=== PATIENT | female | born 1940 | race Caucasian/White ===

== ENCOUNTER 2016-11-08 13:46 | Observation (INO) | payer MEDICARE, OTHER ==
[~2016-11-08] VITALS: Ht 154.9 cm; Wt 71.0 kg
[2016-11-08] VITALS (9 sets, daily range): BP systolic 125–165; BP diastolic 69–82; PULSE 64–70; RESP 12–18; TEMP 97.8–98.5; O2SAT 94–99
[~2016-11-08 13:46] MED LIST: ALPR0.5T99 PO; ATOR20TA42 PO; CENTTAB9 PO; DARV PO; NAPR550 PO; OYST500T77 PO; TESS200C PO; ZITH250T PO
[2016-11-08] MEDS ORDERED: NEXI20CA PO (14:07)
[2016-11-08] MEDS ORDERED: TIMO0.2517 EACH EYE (14:07)
[2016-11-08] MEDS ORDERED: LISI20TA PO (14:07)
[2016-11-08] MEDS ORDERED: [UNRECOGNIZED DRUG - OTHER] PO (14:07)
[2016-11-08] MEDS ORDERED: CITA20TA4 PO (14:07)
[2016-11-08] MEDS ORDERED: B12-1CHW CHEW (14:07)
[2016-11-08] MEDS ORDERED: [UNRECOGNIZED DRUG - OTHER] PO (14:07)
[2016-11-08] MEDS ORDERED: CALC-131 PO (14:07)
[2016-11-08] MEDS ORDERED: ASPIRIN 81 MG CHEW TAB PO ONE (14:45)
[2016-11-08] MEDS ORDERED: SODIUM CHLORIDE 0.9% FLUSH 5 ML FLUSH IVF PRN ×2 (14:45→16:45)
[2016-11-08 14:49] LABS: AUTOMATED NEUTROPHIL # 2.8 TH/MM3 (1.8-7.7); BASOPHIL % 0.7 % (0.0-2.0); EOSINOPHIL # 0.1 TH/MM3 (0-0.4); EOSINOPHIL % 2.2 % (0.0-4.0); HEMATOCRIT 35.4 % (35.0-46.0); HEMO FLAGS DIFF FINAL; LYMPH % 26.7 % (9.0-44.0); LYMPHOCYTE # 1.2 TH/MM3 (1.0-4.8); MEAN CORPUSCULAR HEMOGLOBIN 31.4 PG (27.0-34.0); MEAN CORPUSCULAR HGB CONC 33.7 % (32.0-36.0); MONO % 10.4 % (0.0-8.0); PLATELET COUNT 211 TH/MM3 (150-450); RED CELL DISTRIBUTION WIDTH 13.4 % (11.6-17.2); WHITE BLOOD COUNT 4.6 TH/MM3 (4.0-11.0)
[2016-11-08 14:56] LABS: CHLORIDE 103 MEQ/L (98-107); POTASSIUM 3.7 MEQ/L (3.5-5.1); SODIUM (NA) 142 MEQ/L (136-145)
[2016-11-08 15:00] LABS: ANION GAP 8 MEQ/L (5-15); BICARBONATE 30.7 MEQ/L (21.0-32.0); BLOOD UREA NITROGEN 21 MG/DL (7-18); MAGNESIUM 2.2 MG/DL (1.5-2.5)
[2016-11-08] MEDS ORDERED: NITROGLYCERIN 0.4 MG SL 25 TABS/BTL SL ONE (15:00)
[2016-11-08 15:02] LABS: APTT (PATIENT) 27.7 SEC (24.3-30.1); INTERNATIONAL NORMALIZED RATIO 0.9 RATIO; PROTHROMBIN TIME - PATIENT 10.1 SEC (9.8-11.6)
[2016-11-08 15:03] LABS: ALT (GPT) 13 U/L (10-53); AST (GOT) 17 U/L (15-37); GLOMERULAR FILTRATION RATE 40 ML/MIN (>89)
[2016-11-08 15:05] LABS: TOTAL BILIRUBIN ADULT 0.2 MG/DL (0.2-1.0)
[2016-11-08 15:06] LABS: ALKALINE PHOSPHATASE 61 U/L (45-117)
--- NOTE | 2016-11-08 15:27 | RADHPO ---
EXAM DATE/TIME: 11/08/2016 14:52 [facility] COMPARISON: No previous studies available for comparison. INDICATIONS : Chest pain MEDICAL HISTORY : None. SURGICAL HISTORY : None. ENCOUNTER: Initial ACUITY: 1 day PAIN SCORE: 5/10 LOCATION: Bilateral chest FINDINGS: PA and lateral views of the chest demonstrate bilateral mostly basilar airspace disease. Mild cardiom egaly. Trace pleural fluid. Tortuous aorta. CONCLUSION: 1. Cardiomegaly with basilar space disease. Differential diagnosis includes mild pulmonary edema. Mike Velazquez MD on November 08, 2016 at 15:23 Board Certified Radiologist. This report was verified electronically.
--- NOTE | 2016-11-08 15:34 | PD ---
HPI Chief Complaint: Chest Pain Time Seen by Provider: 14:06 Travel History International Travel<30 days: No Contact w/Intl Traveler<30days: No Traveled to known affect area: No History of Present Illness HPI Is a 75-year-old woman who presents to the emergency department complaining of chest pain and pressure coming intermittently for the past week or so. She's had 3 separate episodes. She's had the pain intermittently in the past, but never very severe, never very frequently. Over the past week she's had a more frequently, more persistent, and in greater severity. She describes squeezing pain in her chest and goes into her back. It last about 2 hours last night. She still had mild chest pressure this morning with continued third now. No diaphoresis. No shortness of breath. She has had some left temporal headache as well with these pains. She otherwise has been feeling generally well and healthy. She is a history of hiatal hernia and GERD. She takes Nexium. She states she is not really had an increase in her indigestion symptoms. She also has had a history of taketsubo cardiomyopathy several years ago. No history of CAD. No residual symptoms from the cardiomyopathy, which apparently is completely resolved. History Past Medical History Narrative Medical Hiatal hernia, GERD Hypertension Anxiety/depression Hyperlipidemia History of Taketsubo cardiomyopathy/apical ballooning syndrome Tetanus Vaccination: Unknown Influenza Vaccination: No Menopausal: Yes Social History Alcohol Use: Yes (WINE DAILY) Tobacco Use: No Allergies-Medications (Allergen,Severity, Reaction): Coded Allergies: Codeine (Verified Allergy, Severe, Anaphylaxis, 11/08/16) Reported Meds & Prescriptions Reported Meds & Active Scripts Active Reported Timolol Maleate (Timolol Maleate (Ophth)) 0.25 % Mattie Unknown Dose EACH EYE HS Lisinopril-Hctz 20-12.5 Mg Tab 1 Tab PO DAILY Citalopram (Citalopram Hydrobromide) 20 Mg Tab 20 Mg PO DAILY [Proepa] Unknown Dose PO DAILY Calcium & Magnesium (Calcium-Magnesium) 750-465 Mg Tab 1 Tab PO DAILY [Memory Pro] Unknown Dose PO DAILY [id number] (Methylcobalamin) 1 Mg Chew 1 Mg CHEW DAILY Nexium (Esomeprazole DR) 20 Mg Capdr 20 Mg PO DAILY Review of Systems Except as stated in HPI: all other systems reviewed are Neg Physical Exam Narrative GENERAL: Well-appearing 75 year-old woman, no acute distress. SKIN: Warm and dry. HEAD: Atraumatic. Normocephalic. EYES: Pupils equal and round. No scleral icterus. No injection or drainage. ENT: No nasal bleeding or discharge. Mucous membranes pink and moist. No temporal tenderness. NECK: Trachea midline. No JVD. CARDIOVASCULAR: Regular rate and rhythm. No murmur appreciated. RESPIRATORY: No accessory muscle use. Clear to auscultation. Breath sounds equal bilaterally. GASTROINTESTINAL: Abdomen flat and soft. No tenderness. No right upper quadrant tenderness. Negative Tipton's. No palpable organomegaly. MUSCULOSKELETAL: No obvious deformities. No edema. NEUROLOGICAL: Awake and alert. No obvious cranial nerve deficits. Motor grossly within normal limits. Normal speech. PSYCHIATRIC: Appropriate mood and affect; insight and judgment normal. Data Data Last Documented VS Vital Signs Date Time Temp Pulse Resp B/P Pulse Ox O2 Delivery O2 Flow Rate FiO2 11/08/16 15:36 16 11/08/16 15:23 64 151/75 129/73 11/08/16 14:07 98 Nasal Cannula 2 11/08/16 13:55 98.5 Orders Electrocardiogram (11/08/16 14:36) Complete Blood Count With Diff (11/08/16 14:36) Comprehensive Metabolic Panel (11/08/16 14:36) Magnesium (Mg) (11/08/16 14:36) Prothrombin Time / Inr (Pt) (11/08/16 14:36) Act Partial Throm Time (Ptt) (11/08/16 14:36) Troponin I (11/08/16 14:36) Lipase (11/08/16 14:36) Ecg Monitoring (11/08/16 14:36) Bilateral Bp Monitoring (11/08/16 14:36) Iv Access Insert/Monitor (11/08/16 14:36) Oximetry (11/08/16 14:36) Oxygen Administration (11/08/16 14:36) Aspirin Chew (Aspirin Chew) (11/08/16 14:45) Sodium Chloride 0.9% Flush (Ns Flush) (11/08/16 14:45) Chest, Pa & Lat (11/08/16 14:36) Nitroglycerin Sl (Nitrostat Sl) (11/08/16 15:00) B-Type Natriuretic Peptide (11/08/16 15:33) Westergren Sedimentation Rate (11/08/16 15:33) C-Reactive Protein (Crp) (11/08/16 15:33) Labs Laboratory Tests Test 11/08/16 14:40 White Blood Count 4.6 TH/MM3 Red Blood Count 3.80 MIL/MM3 Hemoglobin 11.9 GM/DL Hematocrit 35.4 % Mean Corpuscular Volume 93.0 FL Mean Corpuscular Hemoglobin 31.4 PG Mean Corpuscular Hemoglobin 33.7 % Concent Red Cell Distribution Width 13.4 % Platelet Count 211 TH/MM3 Mean Platelet Volume 8.9 FL Neutrophils (%) (Auto) 60.0 % Lymphocytes (%) (Auto) 26.7 % Monocytes (%) (Auto) 10.4 % Eosinophils (%) (Auto) 2.2 % Basophils (%) (Auto) 0.7 % Neutrophils # (Auto) 2.8 TH/MM3 Lymphocytes # (Auto) 1.2 TH/MM3 Monocytes # (Auto) 0.5 TH/MM3 Eosinophils # (Auto) 0.1 TH/MM3 Basophils # (Auto) 0.0 TH/MM3 CBC Comment DIFF FINAL Differential Comment Erythrocyte Sedimentation Rate 47 mm/hr Prothrombin Time 10.1 SEC Prothromb Time International 0.9 RATIO Ratio Activated Partial 27.7 SEC Thromboplast Time Sodium Level 142 MEQ/L Potassium Level 3.7 MEQ/L Chloride Level 103 MEQ/L Carbon Dioxide Level 30.7 MEQ/L Anion Gap 8 MEQ/L Blood Urea Nitrogen 21 MG/DL Creatinine 1.30 MG/DL Estimat Glomerular Filtration 40 ML/MIN Rate Random Glucose 98 MG/DL Calcium Level 8.1 MG/DL Magnesium Level 2.2 MG/DL Total Bilirubin 0.2 MG/DL Aspartate Amino Transf 17 U/L (AST/SGOT) Alanine Aminotransferase 13 U/L (ALT/SGPT) Alkaline Phosphatase 61 U/L Troponin I LESS THAN 0.02 NG/ML B-Type Natriuretic Peptide 66 PG/ML Total Protein 6.8 GM/DL Albumin 3.2 GM/DL Lipase 110 U/L MDM Medical Decision Making Medical Screen Exam Complete: Yes Emergency Medical Condition: Yes Interpretation(s) Review of EKG: Normal sinus rhythm at a rate of 69, normal axis, normal intervals, no ischemia. LABS: CBC is unremarkable. CMP is unremarkable. Troponin negative. Lipase is normal. Coags are unremarkable. Chest x-ray: Cardiomegaly and basilar airspace disease. Possible mild pulmonary edema. Differential Diagnosis ACS, esophageal spasm, cholecystitis, gastritis, other Narrative Course Medical decision making INITIAL: 75-year-old woman with chest pain, intermittently over the past little while, worse over the past week, especially bad last night. Concerning for ACS. History of taketsubo cardiomyopathy, but no coronary artery disease. We' ll check labs, x-ray, EKG, reassess. Also some intermittent unilateral headache. No scalp tenderness. We'll check sedimentation rate. FINAL: Intermittent chest pain, gradually worsening, worse today. No history of CAD. We'll plan on admission to the chest pain Center. Chest x-ray shows a little bit of cardiomegaly, with possible mild pulmonary edema. BNP is normal. She has no other symptoms to suggest heart failure. She also complains of intermittent unilateral headache. She's had these for some time but also has been worse recently. There is no temporal artery tenderness. Sedimentation rates only mildly elevated. We'll plan on admission to the chest pain Center. Diagnosis Primary Impression: Chest pain Qualified Code: R07.9 - Chest pain, unspecified type Abdi Alicea MD Nov 08, 2016 15:34
[2016-11-08] MEDS ORDERED: TEMAZEPAM 15 MG CAP PO PRN (16:45)
[2016-11-08] MEDS ORDERED: ONDANSETRON HCL 4 MG/2 ML VIAL IV PRN (16:45)
[2016-11-08] MEDS ORDERED: ACETAMINOPHEN 500 MG CPLT PO PRN (16:45)
[2016-11-08] MEDS: NS + KCL 20 MEQ INJ 1,000 ML IV SCH (17:42)
[2016-11-08 18:10] LABS: CREATINE KINASE 66 U/L (26-192)
[2016-11-08] MEDS: SODIUM CHLORIDE 0.9% FLUSH 5 ML FLUSH IVF SCH (21:00)
[2016-11-08 21:11] LABS: CREATINE KINASE 62 U/L (26-192)
[2016-11-08] MEDS: NITROGLYCERIN 0.4 MG SL 25 TABS/BTL SL PRN ×3 (21:44→21:57)
[2016-11-09] VITALS (11 sets, daily range): BP systolic 138–184; BP diastolic 67–89; PULSE 60–86; RESP 16–19; TEMP 96.9–98.2; O2SAT 92–97
[2016-11-09] MEDS: NS + KCL 20 MEQ INJ 1,000 ML IV SCH (03:45)
[2016-11-09] MEDS: NITROGLYCERIN 0.4 MG SL 25 TABS/BTL SL PRN ×3 (03:46→04:02)
[2016-11-09 06:31] LABS: POTASSIUM 3.9 MEQ/L (3.5-5.1)
[2016-11-09 06:34] LABS: BICARBONATE 30.5 MEQ/L (21.0-32.0)
--- NOTE | 2016-11-09 07:06 | HHI.HP ---
[facility] Primary Care Physician Non-Staff Admission Diagnosis Chest Pain Diagnoses: (1) Chest pain Diagnosis: Principal (2) Hypertension Diagnosis: Secondary (3) Hyperlipidemia Diagnosis: Secondary (4) Takotsubo cardiomyopathy Diagnosis: Secondary Chief Complaint: Chest pain Travel History International Travel<30 Days: No Contact w/Intl Traveler <30 Da: No Traveled to Known Affected Are: No History of Present Illness 75-year-old female with known history of hypertension, hyperlipidemia untreated, Takotsubo cardiomyopathy, gastroesophageal reflux who presented to hospital because of chest discomfort. Patient states that her last few weeks she has been having intermittent chest discomfort described as a pressure type sensation that is located in the midsternal area and goes into her back. She describes it as someone is compressing her from the front and back. Patient states that his discomfort usually resolved on its own, she states that last for different amounts of times. She indicates that exercise or rest doesn't make the discomfort worse or better. She was planning on coming to the hospital 2 days ago because of chest discomfort however it resolved and she did not come in. However she developed pain yesterday which remain persistent throughout the day with increased intensity periodically. She came to emergency department, had unremarkable workup. Is recommended by ER physician the patient be observed in the chest pain center. Patient denies any nausea, vomiting, shortness of breath, dyspnea, diaphoresis. Patient indicates that she was recently admitted in the hospital up in [place] for uncontrolled hypertension. Patient recently started on medication to include lisinopril/ HCTZ. Since starting medication she has had increased cough. She denies any fever, chills, sputum production, sore throat. Review of Systems Constitutional: DENIES: Diaphoretic episodes, Fatigue, Fever, Weight gain, Weight loss, Chills, Dizziness, Change in appetite, Night Sweats Eyes: DENIES: Blurred vision, Diplopia, Eye inflammation, Eye pain, Vision loss , Double Vision Ears, nose, mouth, throat: DENIES: Vertigo, Nasal discharge, Throat pain, Ear Pain, Running Nose, Sinus Pain Respiratory: COMPLAINS OF: Cough, DENIES: Apneas, Snoring, Wheezing, Hemoptysis, Sputum production, Shortness of breath Cardiovascular: COMPLAINS OF: Chest pain, DENIES: Palpitations, Syncope, Dyspnea on Exertion, Lower Extremity Edema, Orthopnea Gastrointestinal: DENIES: Abdominal pain, Black stools, Bloody stools, Constipation, Diarrhea, Nausea, Vomiting, Difficulty Swallowing, Anorexia Neurologic: DENIES: Abnormal gait, Headache, Localized weakness, Paresthesias, Seizures, Speech Problems, Tremor, Poor Balance Psychiatric: COMPLAINS OF: Anxiety, Depression, DENIES: Confusion, Mood changes Past Family Social History Past Medical History Hiatal hernia Gastroesophageal reflux Hypertension Anxiety/depression Hyperlipidemia History of Taketsubo cardiomyopathy Past Surgical History Cataract surgery Tonsillectomy Right shoulder surgery Left knee surgery Fibroidectomy Reported Medications Reported Meds & Active Scripts Active Reported Timolol Maleate (Timolol Maleate (Ophth)) 0.25 % Mattie Unknown Dose EACH EYE HS Lisinopril-Hctz 20-12.5 Mg Tab 1 Tab PO DAILY Citalopram (Citalopram Hydrobromide) 20 Mg Tab 20 Mg PO DAILY [Proepa] Unknown Dose PO DAILY Calcium & Magnesium (Calcium-Magnesium) 750-465 Mg Tab 1 Tab PO DAILY [Memory Pro] Unknown Dose PO DAILY [id number] (Methylcobalamin) 1 Mg Chew 1 Mg CHEW DAILY Nexium (Esomeprazole DR) 20 Mg Capdr 20 Mg PO DAILY Allergies: Coded Allergies: Codeine (Verified Allergy, Severe, Anaphylaxis, 11/08/16) Family History Reviewed is significant for heart disease. Patient states that her father in his 70s after having bypass surgery. Her son age 49 just had a heart attack Social History Patient uses socially smoking and quit in her 30s. She drinks alcohol rarely. Denies any illicit drugs Physical Exam Vital Signs Vital Signs Date Time Temp Pulse Resp B/P Pulse Ox O2 Delivery O2 Flow Rate FiO2 11/09/16 04:09 96.9 64 16 147/70 96 11/09/16 00:09 97.0 71 16 138/67 92 11/08/16 23:00 67 11/08/16 20:53 97.8 67 12 165/82 94 11/08/16 19:22 98 21 11/08/16 18:00 97.9 70 18 165/72 98 Manual Cuff/Auscultation 11/08/16 17:49 64 16 147/69 99 11/08/16 17:38 96 21 11/08/16 15:36 70 16 125/69 99 Room Air 11/08/16 15:36 16 11/08/16 15:23 64 16 151/75 129/73 11/08/16 14:07 98 Nasal Cannula 2 11/08/16 13:58 Nasal Cannula 2 11/08/16 13:55 98.5 68 16 149/69 98 11/08/16 13:55 98 Nasal Cannula 2 11/08/16 13:55 16 98 Nasal Cannula 2 Physical Exam GENERAL: Well-developed, well-nourished, in no acute distress. alert and orientated HEENT: Head is normocephalic without any lesions or masses noted. Facial features are symmetric. Eyes: Pupils equal round reactive to light. Extraocular muscles are intact. Conjunctivae were clear. Oropharyngeal: Pharynx without any erythema edema. Tongue is midline without deviation. Buccal mucosa is moist without any masses or lesions NECK: Supple without any masses. Trachea midline no deviation. No JVD, no bruits are appreciated CARDIAC: Regular rhythm, regular rate. S1/S2 are heard. No murmurs gallops or rubs. LUNGS: Clear to auscultation bilaterally. No wheeze, rhonchi or rales. No use of accessory muscles on inspiration or expiration. ABDOMEN: Soft, nontender. Nondistended. Bowel sounds heard in all 4 quadrants. No organomegaly or masses. Negative rebound, negative guarding EXTREMITIES: No edema, pulses are equal bilaterally. No cyanosis or clubbing NEUROLOGY: Mood and affect appear appropriate. Cranial nerves II through XII grossly intact. Muscle strength 5/5 in upper and lower extremities bilaterally. Deep tendon reflexes are 2+ in upper and lower extremities bilaterally. Laboratory Laboratory Tests Test 11/08/16 11/08/16 11/08/16 11/09/16 14:40 17:38 20:36 05:42 White Blood Count 4.6 Red Blood Count 3.80 Hemoglobin 11.9 Hematocrit 35.4 Mean Corpuscular Volume 93.0 Mean Corpuscular Hemoglobin 31.4 Mean Corpuscular Hemoglobin 33.7 Concent Red Cell Distribution Width 13.4 Platelet Count 211 Mean Platelet Volume 8.9 Neutrophils (%) (Auto) 60.0 Lymphocytes (%) (Auto) 26.7 Monocytes (%) (Auto) 10.4 Eosinophils (%) (Auto) 2.2 Basophils (%) (Auto) 0.7 Neutrophils # (Auto) 2.8 Lymphocytes # (Auto) 1.2 Monocytes # (Auto) 0.5 Eosinophils # (Auto) 0.1 Basophils # (Auto) 0.0 CBC Comment DIFF FINAL Differential Comment Erythrocyte Sedimentation Rate 47 Prothrombin Time 10.1 Prothromb Time International 0.9 Ratio Activated Partial 27.7 Thromboplast Time Sodium Level 142 143 Potassium Level 3.7 3.9 Chloride Level 103 106 Carbon Dioxide Level 30.7 30.5 Anion Gap 8 7 Blood Urea Nitrogen 21 19 Creatinine 1.30 0.87 Estimat Glomerular Filtration 40 63 Rate Random Glucose 98 91 Calcium Level 8.1 7.9 Magnesium Level 2.2 Total Bilirubin 0.2 Aspartate Amino Transf 17 (AST/SGOT) Alanine Aminotransferase 13 (ALT/SGPT) Alkaline Phosphatase 61 Troponin I LESS THAN 0.02 LESS THAN 0.02 LESS THAN 0.02 C-Reactive Protein LESS THAN 0.29 B-Type Natriuretic Peptide 66 Total Protein 6.8 Albumin 3.2 Lipase 110 Total Creatine Kinase 66 62 Result Diagram: 11/08/16 1440 11/09/16 0542 Imaging Last Impressions Chest X-Ray 11/08/16 1436 Signed Impressions: Service Date/Time: Tuesday, November 08, 2016 14:52 - CONCLUSION: 1. Cardiomegaly with basilar space disease. Differential diagnosis includes mild pulmonary edema. Mike Velazquez MD Assessment and Plan Assessment and Plan Chest pain Patient with increased risk factors to include age, hypertension, hyperlipidemia, Takotsubo cardiomyopathy Serial cardiac enzymes were performed and reviewed by myself which were negative for any acute coronary event Serial EKGs were performed and reviewed by myself shows sinus rhythm without any changes Nuclear stress test was performed which did indicate mild reversibility in the inferior wall suggesting ischemia with intermediate risk factor. Continue aspirin Start Nitropaste Start Lopressor 12.5 mg twice daily SWATHI inhibitor continued Obtain lipid panel Consulted cardiology for further recommendations. Hypertension Continue home medications Anxiety/depression Continue home medications Gastroesophageal reflux Continue home medications DVT prevention Sequential compression devices Written by Anthony Richardson PA-C, acting as scribe for Dr. Sahu on 11/09/16 at 1330. The documentation accurately reflects the work and decisions performed face-to- face by Dr. Sahu on 11/09/16 at 1330. Discharge disposition Discharge home in stable condition Activity: Ad kirsty. Diet: Healthy heart diet Medications per medication reconciliation Follow-up primary medical doctor in one week Problem Qualifiers (1) Chest pain: Qualified Code: R07.9 - Chest pain, unspecified type (2) Hypertension: Qualified Code: I15.9 - Secondary hypertension (3) Hyperlipidemia: Qualified Code: E78.5 - Hyperlipidemia, unspecified hyperlipidemia type Anthony Richardson Nov 09, 2016 07:06
[2016-11-09] MEDS: PANTOPRAZOLE SOD 20 MG DELAYED RELEASE TAB PO SCH (08:52)
[2016-11-09] MEDS: ASPIRIN 325 MG TAB PO SCH (08:53)
[2016-11-09] MEDS: HYDROCHLOROTHIAZIDE 12.5 MG CAP PO SCH (08:53)
[2016-11-09] MEDS: LISINOPRIL 20 MG TAB PO SCH (08:53)
[2016-11-09] MEDS: CITALOPRAM HYDROBROMIDE 20 MG TAB PO SCH (08:53)
[2016-11-09] MEDS: SODIUM CHLORIDE 0.9% FLUSH 5 ML FLUSH IVF SCH ×2 (08:54→19:37)
[2016-11-09] MEDS ORDERED: REGADENOSON INJ 0.4 MG/5 ML SYR IV ONE (11:37)
--- NOTE | 2016-11-09 12:58 | EKG ---
Date Performed: 11/08/2016 Time Performed: 13:52:18 PTAGE: 75 years EKG: Sinus rhythm Since previous tracing, no significant change noted Normal ECG NO PREVIOUS TRACING DOCTOR: Holden Coronel Interpretating Date/Time 11/09/2016 12:56:39
--- NOTE | 2016-11-09 12:58 | EKG ---
Date Performed: 11/08/2016 Time Performed: 17:46:52 PTAGE: 75 years EKG: Sinus rhythm Since previous tracing, no significant change noted Normal ECG PREVIOUS TRACING : 11/08/2016 13.52 DOCTOR: Holden Coronel Interpretating Date/Time 11/09/2016 12:56:55
--- NOTE | 2016-11-09 12:59 | EKG ---
Date Performed: 11/08/2016 Time Performed: 20:40:42 PTAGE: 75 years EKG: Sinus rhythm . Since previous tracing, no significant change noted Normal ECG PREVIOUS TRACING : 11/08/2016 13.52 DOCTOR: Hodlen Coronel Interpretating Date/Time 11/09/2016 12:57:31
--- NOTE | 2016-11-09 13:01 | EKG ---
Date Performed: 11/09/2016 Time Performed: 04:30:18 PTAGE: 75 years EKG: Sinus rhythm Since previous tracing, no significant change noted Normal ECG PREVIOUS TRACING : 11/08/2016 20.40 DOCTOR: Holden Coronel Interpretating Date/Time 11/09/2016 13:00:13
--- NOTE | 2016-11-09 13:10 | RADHPO ---
EXAM DATE/TIME: 11/09/2016 11:59 [facility] COMPARISON: No previous studies available for comparison. INDICATIONS : Chest pain radiating to the back. Angina. DOSE: 26.1 mCi Tc99m Myoview at stress. 8.7 mCi Tc99m Myoview at rest. 0.4 mg Lexiscan STRESS SYMPTOMS: Dyspnea, leg pain, head pressure and tingling. EJECTION FRACTION: 63% MEDICAL HISTORY : Hypercholesterolemia. Hernia, hiatal. Hypertension. SURGICAL HISTORY : Tonsillectomy. ENCOUNTER: Initial ACUITY: 1 week PAIN SCALE: 7/10 LOCATION: chest TECHNIQUE: The patient underwent pharmacologic stress with infusion of prescribed dose. Continuous ECG tracing was monitored during stress. Gated SPECT imaging was performed after stress and conventional SPECT i maging was performed at rest. The examination was performed on a SPECT/CT scanner, both attenuation and non-corrected datasets were reviewed. FINDINGS: DISTRIBUTION: The maximum perfused segment at stress is in the lateral and septal wall. PERFUSION STUDY: Mild reversibility in the inferior wall. GATED STUDY: There is intact wall motion and thickening without hypokinetic or dyskinetic segments. CONCLUSION: 1. Mild reversibility in the inferior wall suggesting ischemia. 2. Normal ejection fraction. RISK CATEGORY: Intermediate (1-3% Annual Mortality Rate) Luisito Xavier MD on November 09, 2016 at 13:07 Board Certified Radiologist. This report was verified electronically.
[2016-11-09] MEDS: METOPROLOL TARTRATE 25 MG TAB PO SCH ×2 (14:18→19:37)
[2016-11-09] MEDS: NITROGLYCERIN 2% OINT 1 GM PACKET TOPICAL SCH ×2 (14:19→18:33)
[2016-11-09 15:16] LABS: HDL CHOLESTEROL 54.1 MG/DL (40.0-60.0)
--- NOTE | 2016-11-09 19:37 | TR ---
Date Performed: 11/09/2016 Time Performed: 12:04:55 DOCTOR: Sherif Hilario DRUG LIST: CLINICAL HISTORY: REASON FOR TEST: Chest pain. REASON FOR ENDING: OBSERVATION: CONCLUSION: Lexiscan stress test was performed under standard four minute protocol. Radionuclide was injected one minute prior to ending the test. Developed heaviness in the legs, dyspnea, pressure in the head, nausea and tingling; blood pressure became moderately elevated. No electrocardiographic abnormalities were present to suggest ischemia. Recovery was quick and uneventful with resolution of symptoms, systolic blood pressure remained moderately elevated. Nuclear imaging and interpretation a re pending. COMMENTS:
[2016-11-10] VITALS (9 sets, daily range): BP systolic 124–163; BP diastolic 66–88; PULSE 56–70; RESP 16–18; TEMP 98.1–98.4; O2SAT 93–96
[2016-11-10] MEDS: NITROGLYCERIN 2% OINT 1 GM PACKET TOPICAL SCH ×3 (00:16→12:00)
[2016-11-10] MEDS ORDERED: ASPIRIN 325 MG TAB PO SCH (07:30)
[2016-11-10] MEDS ORDERED: HEPARIN-NS/PF INJ 500 ML ONE (07:42)
[2016-11-10] MEDS ORDERED: MIDAZOLAM HCL 2 MG/2 ML VIAL ONE (07:43)
[2016-11-10] MEDS ORDERED: HEPARIN SODIUM - IV 10,000 UNITS/10 ML VIAL ONE (07:43)
[2016-11-10] MEDS ORDERED: VERAPAMIL HCL 5 MG/2 ML VIAL ONE (07:43)
[2016-11-10] MEDS ORDERED: NITROGLYCERIN INJ 5 ML ONE (07:43)
[2016-11-10] MEDS ORDERED: diphenhydrAMINE HCL 50 MG/ML VIAL ONE (07:47)
[2016-11-10] MEDS ORDERED: SODIUM CHLOR 0.9% 1000 ML INJ 1,000 ML IV SCH (08:00)
--- NOTE | 2016-11-10 08:00 | MB ---
cc: CHARLES HAYES M.D. DATE OF CONSULTATION 11/10/2016 REASON FOR CONSULTATION Evaluation of unstable angina. HISTORY OF PRESENT ILLNESS Dacia Anderson is a 75-year-old woman with multiple risk factors for coronary artery disease. She has a strong family history. She smoked but quit at age 30. She has hypertension. She has severe hyperlipidemia with an LDL cholesterol greater than 200 that has not been treated. She has been having intermittent chest pain like a pressure-type feeling. She had Takotsubo 7 years ago and had a cath at that time that showed no blockage. Her chest pressure became very frequent the last three days and Thursday night lasted all night. She was admitted and treated with nitroglycerin and beta miya. Her troponin was negative. Her nuclear stress test is showing mild inferior ischemia, intermediate risk as interpreted by radiology. PAST MEDICAL HISTORY 1. Hypertension. 2. Hyperlipidemia. 3. Takotsubo syndrome. 4. Gastroesophageal reflux disease. 5. Anxiety. PAST SURGICAL HISTORY 1. Right shoulder surgery. 2. Left knee surgery. 3. Tonsillectomy. 4. She has had some things removed from her hands. 5. She had fibroid ablation. SOCIAL HISTORY She is . She has three children. She drinks socially only very little. ALLERGIES CODEINE. She is intolerant of statins due to myalgias and this was many, many years ago. FAMILY HISTORY Her father had bypass surgery. She has a brother who has had A-fib. REVIEW OF SYSTEMS Denies any bleeding. Remaining review of systems negative. PHYSICAL EXAMINATION GENERAL: Physical exam reveals a pleasant, well-developed, well-nourished white female in no acute distress. VITAL SIGNS: Blood pressure 124/75 at midnight, 163/88 this morning. Pulses is 56. HEENT: Exam unremarkable. NECK: No JVD, no bruits. CHEST: Clear to auscultation. CARDIAC EXAM: S1-S2. Regular rate and rhythm. No murmurs, no gallops. ABDOMEN: Soft, nontender. No mass or splenomegaly. EXTREMITIES: No clubbing, cyanosis or edema. NEUROLOGIC: Alert and oriented. No focal defects. EKGS The EKGs x 2 were normal. LABORATORIES Troponin is less than 0.02. Creatinine is 0.87, HDL was 54, LDL 209, triglycerides 79, total cholesterol 279. CHEST X-RAY Cardiomegaly with basilar airspace disease. Also, a tortuous aorta. Nuclear stress test showed mild reversibility in the inferior wall suggesting ischemia and normal ejection fraction. IMPRESSION A 75-year-old woman with multiple cardiac risk factors and fairly typical substernal chest pressure radiating to the back that has been worse for the past few days. Her nuclear stress test is positive in inferior wall. RECOMMENDATIONS I recommend a cardiac catheterization. Informed consent obtained, risks discussed. Suspect we will likely find something. Discussed the options of medical treatment of her surgical bypass versus stenting. The patient requests a radial approach due to her height of 5'1" and age of 75 with a tortuous aorta. I am going to go left wrist to perform diagnostic angiography and then plan from there what we need to do further. Informed consent has been obtained. Charles Hayes MD VEW/SSB /7:24 AM /7:47 AM
[2016-11-10] MEDS ORDERED: SODIUM CHLORIDE 0.9% FLUSH 5 ML FLUSH IVF PRN (08:30)
[2016-11-10] MEDS ORDERED: oxyCODONE/ACETAMINOPHEN 5 MG/325 MG TAB PO PRN (08:30)
[2016-11-10] MEDS ORDERED: BACITRACIN OINT 0.9 GM PKT TOP ONE (08:30)
[2016-11-10] MEDS ORDERED: MISC INFORMATION XX ONE (08:30)
[2016-11-10] MEDS ORDERED: SODIUM CHLORIDE 0.9% FLUSH 5 ML FLUSH IVF SCH (09:00)
[2016-11-10] MEDS ORDERED: ATORVASTATIN 20 MG TAB PO SCH (09:00)
[2016-11-10] MEDS ORDERED: METOPROLOL TARTRATE 25 MG TAB PO SCH (09:00)
[2016-11-10] MEDS ORDERED: amLODIPine BESYLATE 5 MG TAB PO SCH (09:00)
[2016-11-10] MEDS: CITALOPRAM HYDROBROMIDE 20 MG TAB PO SCH (09:00)
[2016-11-10] MEDS: ASPIRIN 325 MG TAB PO SCH (09:43)
[2016-11-10] MEDS: LISINOPRIL 20 MG TAB PO SCH (09:43)
[2016-11-10] MEDS: HYDROCHLOROTHIAZIDE 12.5 MG CAP PO SCH (09:43)
[2016-11-10] MEDS: PANTOPRAZOLE SOD 20 MG DELAYED RELEASE TAB PO SCH (09:44)
[2016-11-10] MEDS ORDERED: IOHEXOL 350 MG/ML 100 ML BTL (for Cath Lab) OTHER ONE (10:23)
--- NOTE | 2016-11-10 11:00 | MA ---
cc: CHARLES HAYES M.D. DATE: 11/10/2016 PROCEDURE PERFORMED Left heart catheterization, left ventriculography, coronary angiography, left radial artery approach. BRIEF HISTORY Dacia Anderson is a 75-year-old woman with unstable angina. Nuclear stress test was intermediate risk for the inferior wall. Informed consent was obtained for cath and possible intervention. DESCRIPTION OF PROCEDURE The patient was brought to the [facility] in a fasting state. She received 25 mg of IV Benadryl and 1 mg of IV Versed for sedation. The left wrist was prepped and draped in sterile fashion. Using a Jelco needle a Terumo sheath was placed without difficulty. Standard cocktail was administered with 2.5 mg of Verapamil, 2500 units of heparin, and 200 mcg of nitroglycerin into the sheath. Left coronary angiography was performed using a left 4 Addy catheter. Right coronary angiography was performed using a right 5 Addy catheter. Left ventricular pressure was recorded with the right Addy with left ventriculography and then a pullback. The sheath was removed with a Terumo band placed and there were no complications. FINDINGS HEMODYNAMICS Left ventricular pressure is 176/9 with an end-diastolic pressure of 18. Aortic pressure is 181/67 with a mean of 117. There is no gradient during pullback from the left ventricle to the aorta. LEFT VENTRICULOGRAPHY Left ventriculography shows a symmetrically jasiel left ventricle. Estimated ejection fraction is 60%. CORONARY ANGIOGRAPHY There is very mild calcification in the left coronary system. The left coronary system is significantly tortuous. The left main is a large vessel that appears normal. It trifurcates into the LAD, a small ramus and a circumflex vessel. The LAD has about 30% proximal disease and the remainder of the LAD has only irregularities but is moderately tortuous. The major diagonal branch coming off the LAD has a high-grade 80% ostial stenosis. The diagonal appears to be about 2.75 mm vessel whereas the LAD is probably close to 3.5 cm. The ramus intermediate branch is small and has irregularities. The circumflex artery gives off one obtuse marginal branch and a small distal circumflex. The obtuse marginal branch has about 35% stenosis. The right coronary artery is mildly calcified, it is dominant. There is about 35% diffuse stenosis around a proximal curve. Distally there are irregularities only. It gives off a large posterolateral branch and a large PDA branch. CONCLUSIONS 1. Systolic hypertension. 2. Preserved left ventricular systolic function. 3. Mild diffuse coronary artery disease with severe stenosis of the ostium of the diagonal branch. RECOMMENDATIONS Medical therapy. I am increasing her metoprolol to 25 b.i.d. and adding amlodipine 5 mg daily. From my perspective she is okay to go home later today and she is okay to return to [place] this weekend. She will need to have follow-up with a assistant professor of anthropology in [place]. I am going to go ahead and restart her on statin therapy. She has a history of intolerance but has not been on more than one statin before from what I can tell, so she should be re-challenged. MD WENCESLAO Melo/TIMOTHY /8:30 AM /10:48 AM
[2016-11-10] MEDS ORDERED: ASPI325T PO (13:43)
[2016-11-10] MEDS ORDERED: LIPI20TA PO (13:43)
[2016-11-10] MEDS ORDERED: METO25TA3 PO (13:43)
[2016-11-10] MEDS ORDERED: AMLO5 PO (13:43)
--- NOTE | 2016-11-10 13:45 | HHI.PR ---
Subjective Remarks Follow up for chest pain. Ms. Anderson underwent Cardiac cath today. No stent placed. Cardiology cleared for discharge. Currently, patient denies any chest pain, shortness of breath, fever, chills. Remains in good spirit. Objective Vitals Vital Signs Date Time Temp Pulse Resp B/P Pulse Ox O2 Delivery O2 Flow Rate FiO2 11/10/16 10:00 70 140/88 11/10/16 09:45 62 144/88 11/10/16 09:15 66 150/69 11/10/16 09:00 64 156/66 11/10/16 08:45 153/71 11/10/16 08:30 98.4 61 18 160/67 96 11/10/16 04:00 98.1 56 16 163/88 96 11/10/16 00:00 56 11/10/16 00:00 98.1 56 16 124/75 96 11/09/16 21:00 98.1 63 16 150/80 95 11/09/16 20:00 69 11/09/16 19:34 98.2 69 16 179/79 97 11/09/16 19:25 92 21 11/09/16 16:00 98.0 86 19 147/78 96 I/O 11/09/16 11/09/16 11/09/16 11/10/16 11/10/16 11/10/16 07:00 15:00 23:00 07:00 15:00 23:00 Intake Total 425 ml 240 ml 240 ml Output Total 1 ml Balance -1 ml 425 ml 240 ml 240 ml Intake Oral 425 ml 240 ml 240 ml Output Urine Total 1 ml # Voids 1 4 1 2 Result Diagram: 11/08/16 1440 11/09/16 0542 Imaging Last Impressions Myocardial Perfusion Scan Nuc Med 11/09/16 0000 Signed Impressions: Service Date/Time: Wednesday, November 09, 2016 11:59 - CONCLUSION: 1. Mild reversibility in the inferior wall suggesting ischemia. 2. Normal ejection fraction. RISK CATEGORY: Intermediate (1-3%% Annual Mortality Rate) Luisito Xavier MD Chest X-Ray 11/08/16 1436 Signed Impressions: Service Date/Time: Tuesday, November 08, 2016 14:52 - CONCLUSION: 1. Cardiomegaly with basilar space disease. Differential diagnosis includes mild pulmonary edema. Mike Velazquez MD Objective Remarks GENERAL: Alert, Oriented x 3, NAD. SKIN: Warm and dry. HEAD: Normocephalic. EYES: No scleral icterus. No injection or drainage. NECK: Supple, trachea midline. No JVD or lymphadenopathy. CARDIOVASCULAR: Regular rate and rhythm without murmurs, gallops, or rubs. RESPIRATORY: Breath sounds equal bilaterally. No accessory muscle use. GASTROINTESTINAL: Abdomen soft, non-tender, nondistended. MUSCULOSKELETAL: No cyanosis, or edema. BACK: Nontender without obvious deformity. No CVA tenderness. Procedures Cardiac cath 11/10/2016 CONCLUSIONS 1. Systolic hypertension. 2. Preserved left ventricular systolic function. 3. Mild diffuse coronary artery disease with severe stenosis of the ostium of the diagonal branch. RECOMMENDATIONS Medical therapy. I am increasing her metoprolol to 25 b.i.d. and adding amlodipine 5 mg daily. From my perspective she is okay to go home later today and she is okay to return to [place] this weekend. She will need to have follow-up with a electronic heat seal operator in [place]. I am going to go ahead and restart her on statin therapy. She has a history of intolerance but has not been on more than one statin before from what I can tell, so she should be re-challenged. A/P Problem List: (1) Chest pain ICD Code: R07.9 Status: Acute (2) Hypertension ICD Code: I10 Status: Acute (3) Hyperlipidemia ICD Code: E78.5 Status: Acute (4) Takotsubo cardiomyopathy ICD Code: I51.81 Status: Acute Assessment and Plan Ms. Anderson is a pleasant 75 year old female from [place] who was admitted to the hospital on 11/09/2016 due to chest discomfort. She underwent a nuclear stress test and subsequently, patient underwent cardiac cath on 11/10/2016. No stent placed. Medical management recommended by Cardiology. - Chest pain - Stress test positive for inferior wall. Cath on 11/10/2016. - Hypertension - Hyperlipidemia - Continue Amlodipine 5mg Qday, Lisinopril 20mg Qday, HCTZ 12.5mg Qday. - Aspirin 325mg Qday, Lipitor 20mg Qday, Metoprolol 25mg Q12hrs. - GERD - Continue PPI. Full code. Discharge patient to home Condition on discharge: Improved Heart healthy Diet as tolerated Ad Ana Maria activity Rx written: - Amlodipine 5mg Qday - Aspirin 81mg Qday - Lipitor 20mg Qday - Metoprolol 25mg Q12hrs Follow-up with primary care physician and cardiology in 2 weeks. Patient is planning to travel to [place], [place] and [place], [place] then head back to [place]. Problem Qualifiers (1) Chest pain: Qualified Code: R07.9 - Chest pain, unspecified type (2) Hypertension: Qualified Code: I15.9 - Secondary hypertension (3) Hyperlipidemia: Qualified Code: E78.5 - Hyperlipidemia, unspecified hyperlipidemia type Elli Velasquez DO Nov 10, 2016 1:45 pm
== END 2016-11-10 14:31 | disposition home or self-care (01) ==
LOC: PHED 13:46 → UNDOADMOB 16:40 → PHEDA 16:40 → PH3B 17:56 → PHEDA 17:56 → HCIS 11-09 20:54 → PH3B 11-09 20:54 → UNDODISOB 11-10 14:31
PROVIDERS: ADMIT Hospitalist; ATTEND Hospitalist
DX: I25.110 Atherosclerotic heart disease of native coronary artery with unstable angina pectoris (principal); I42.9 Cardiomyopathy, unspecified; I51.81 Takotsubo syndrome; I15.9 Secondary hypertension, unspecified; E78.5 Hyperlipidemia, unspecified; R94.39 Abnormal result of other cardiovascular function study; J81.1 Chronic pulmonary edema; F41.9 Anxiety disorder, unspecified; F32.9 Major depressive disorder, single episode, unspecified; K21.9 Gastro-esophageal reflux disease without esophagitis; Z87.891 Personal history of nicotine dependence
CPT/HCPCS: 71020; 78452; 80048; 80053; 80061; 82550; 83690; 83735; 83880; 84484; 85025; 85610; 85652; 85730; 86140; 93005; 93017; 93458; 99285; A9502; C1769; C1893; G0378; J1200; J1644; J2250; J2785; J3010; J3480; Q9967

== ENCOUNTER → 2017-10-27 | Outpatient (CLI) | payer MEDICARE ==
[~2017-10-27] MED LIST changes: -ALPR0.5T99 PO; +AMLO5 PO; +ASPI-183 PO; -ATOR20TA42 PO; +B12-1CHW CHEW; +CALC-131 PO; -CENTTAB9 PO; +CITA20TA4 PO; -DARV PO; +LIPI20TA PO; +LISI20TA PO; +METO25TA3 PO; -NAPR550 PO; +NEXI20CA PO; -OYST500T77 PO; -TESS200C PO; +TIMO0.2517 EACH EYE; -ZITH250T PO; +[UNRECOGNIZED DRUG - OTHER] PO; +[UNRECOGNIZED DRUG - OTHER] PO
[2017-10-27 13:38] LABS: AUTOMATED NEUTROPHIL # 2.4 TH/MM3 (1.8-7.7); BASOPHIL % 0.7 % (0.0-2.0); EOSINOPHIL # 0.1 TH/MM3 (0-0.4); EOSINOPHIL % 2.7 % (0.0-4.0); HEMATOCRIT 36.5 % (35.0-46.0); HEMOGLOBIN 12.2 GM/DL (11.6-15.3); LYMPH % 22.2 % (9.0-44.0); LYMPHOCYTE # 0.9 TH/MM3 (1.0-4.8); MEAN CELL VOLUME 95.8 FL (80.0-100.0); MEAN CORPUSCULAR HEMOGLOBIN 31.9 PG (27.0-34.0); MEAN CORPUSCULAR HGB CONC 33.3 % (32.0-36.0); MEAN PLATELET VOLUME 8.2 FL (7.0-11.0); MONO % 14.9 % (0.0-8.0); MONOCYTE # 0.6 TH/MM3 (0-0.9); NEUT % 59.5 % (16.0-70.0); PLATELET COUNT 218 TH/MM3 (150-450); RED BLOOD COUNT 3.81 MIL/MM3 (4.00-5.30); RED CELL DISTRIBUTION WIDTH 13.7 % (11.6-17.2); WHITE BLOOD COUNT 4.1 TH/MM3 (4.0-11.0)
[2017-10-27 13:55] LABS: ALBUMIN 3.3 GM/DL (3.4-5.0); AST (GOT) 25 U/L (15-37); BICARBONATE 38.6 MEQ/L (21.0-32.0); BLOOD UREA NITROGEN 15 MG/DL (7-18); CALCIUM 8.8 MG/DL (8.5-10.1); CHLORIDE 99 MEQ/L (98-107); CREATININE 0.98 MG/DL (0.50-1.00); GLOMERULAR FILTRATION RATE 55 ML/MIN (>89); GLUCOSE,FASTING 81 MG/DL (74-99); SODIUM (NA) 140 MEQ/L (136-145)
[2017-10-27 13:56] LABS: ALT (GPT) 31 U/L (10-53); CHOLESTEROL 183 MG/DL (120-200); TRIGLYCERIDES 62 MG/DL (42-150)
[2017-10-27 14:06] LABS: ALKALINE PHOSPHATASE 82 U/L (45-117); CHOLESTEROL/ HDL RATIO 3.07 RATIO; HDL CHOLESTEROL 59.6 MG/DL (40.0-60.0); LDL CHOLESTEROL 111 MG/DL (0-99); TOTAL BILIRUBIN ADULT 0.5 MG/DL (0.2-1.0); TOTAL PROTEIN 6.9 GM/DL (6.4-8.2)
== END ==
LOC: CLAB 12:38
DX: I25.10 Atherosclerotic heart disease of native coronary artery without angina pectoris (principal); I10 Essential (primary) hypertension; E78.00 Pure hypercholesterolemia, unspecified; R68.89 Other general symptoms and signs; M15.8 Other polyosteoarthritis; N39.46 Mixed incontinence; M85.80 Other specified disorders of bone density and structure, unspecified site
CPT/HCPCS: 36415; 80053; 80061; 82043; 82306; 84443; 85025